=== PATIENT | male | born 1945 | race African-American/Black ===

== ENCOUNTER 2019-06-14 13:34 | Emergency (ER) | payer OTHER ==
[~2019-06-14] VITALS: Ht 182.9 cm; Wt 113.4 kg
[2019-06-14] MEDS ORDERED: LIPITOR40 MG (14:05)
[2019-06-14] MEDS ORDERED: TAMS0.4C (14:06)
[2019-06-14] MEDS ORDERED: ASPIR 8181 MG (14:06)
[2019-06-14] MEDS ORDERED: FISH OIL 1,0001 EAC1 (14:07)
[2019-06-14] MEDS ORDERED: VITAMIN B122500 MC1 (14:07)
[2019-06-14] MEDS ORDERED: ZESTRIL20 MG (14:08)
[2019-06-14] MEDS ORDERED: DICLOFENAC SODI75 MG PO (17:41)
[2019-06-14] MEDS ORDERED: NORFLEX100MG PO (17:41)
== END 2019-06-14 17:44 | disposition home or self-care (01) ==
LOC: ER 13:34
DX: S30.0XXA Contusion of lower back and pelvis, initial encounter (principal); S20.212A Contusion of left front wall of thorax, initial encounter; S20.211A Contusion of right front wall of thorax, initial encounter; W18.39XA Other fall on same level, initial encounter; Y93.89 Activity, other specified; Y92.59 Other trade areas as the place of occurrence of the external cause; Y99.8 Other external cause status